=== PATIENT | male | born 1945 | race Caucasian/White ===

== ENCOUNTER 2021-01-24 08:31 | Day surgery (SDC) | payer OTHER, BC ==
[2021-01-21 15:05] VITALS: BMI 26.5
[2021-01-24] MEDS ORDERED: PROPOFOL 20 ML ONE ×2 (08:59)
[2021-01-24 10:23] VITALS: TEMP 97.5
[2021-01-24 10:36] VITALS: BP 111/61; PULSE 55
== END 2021-01-24 10:55 | disposition home or self-care (01) ==
LOC: FASU-ENDO 08:31
PROVIDERS: ATTEND Internal Medicine Gastroenterology
PROC: 0DJD8ZZ Inspection of Lower Intestinal Tract, Via Natural or Artificial Opening Endoscopic (ICD-10-PCS; principal; 2021-01-24 09:52)
DX: Z86.010 Personal history of colon polyps (principal)

== ENCOUNTER 2021-04-21 20:30 | Emergency (ER) | payer OTHER, BC ==
[2021-04-21 21:07] VITALS: BP 128/57; PULSE 63; TEMP 98.7; BMI 26.5
== END 2021-04-21 23:46 | disposition home or self-care (01) ==
LOC: FER 20:30
DX: I83.813 Varicose veins of bilateral lower extremities with pain (principal)
CPT/HCPCS: 93970-TC; 99283-25

== ENCOUNTER 2023-01-30 13:58 | Day surgery (SDC) | payer OTHER, BC ==
[2023-01-30 14:25] VITALS: BP 137/57; PULSE 58; RESP 16; TEMP 98.3
[2023-01-30] MEDS ORDERED: DENOSUMAB 60 MG/ML DISP.SYRIN SQ ONE (14:30)
== END 2023-01-30 14:25 | disposition home or self-care (01) ==
LOC: FINFUSION 13:58 → FM/S 13:59 → FINFUSION 14:25
PROVIDERS: ATTEND Internal Medicine Endocrinology, Diabetes & Metabolism
DX: M81.0 Age-related osteoporosis without current pathological fracture (principal)
CPT/HCPCS: 96372; J0897

== ENCOUNTER 2023-10-03 11:15 | Day surgery (SDC) | payer OTHER, BC ==
[2023-10-03] MEDS: DENOSUMAB 60 MG/ML DISP.SYRIN SQ ONE (11:41)
[2023-10-03 12:28] VITALS: BP 116/54; PULSE 55; RESP 16; TEMP 98.6
== END 2023-10-03 11:50 | disposition home or self-care (01) ==
LOC: FINJECTION 11:15 → FM/S 11:18 → FINJECTION 11:50
PROVIDERS: ATTEND Internal Medicine Endocrinology, Diabetes & Metabolism
PROC: 3E013GC Introduction of Other Therapeutic Substance into Subcutaneous Tissue, Percutaneous Approach (ICD-10-PCS; principal; 2023-10-03)
DX: M81.0 Age-related osteoporosis without current pathological fracture (principal)
CPT/HCPCS: 96372; J0897

== ENCOUNTER 2024-08-07 11:50 | Day surgery (SDC) | payer OTHER, BC ==
[2024-08-07] MEDS ORDERED: REFRIGERATED ANITBIOTICS ONE (11:56)
[2024-08-07] MEDS: DENOSUMAB 60 MG/ML DISP.SYRIN SQ ONE (12:22)
[2024-08-07 12:32] VITALS: BP 116/59; PULSE 60; RESP 16; TEMP 98.9
== END 2024-08-07 12:33 | disposition home or self-care (01) ==
LOC: FINJECTION 11:50 → FM/S 11:51 → FINJECTION 12:33
PROVIDERS: ATTEND Internal Medicine Endocrinology, Diabetes & Metabolism
PROC: 3E023GC Introduction of Other Therapeutic Substance into Muscle, Percutaneous Approach (ICD-10-PCS; principal; 2024-08-07)
DX: M81.0 Age-related osteoporosis without current pathological fracture (principal)
CPT/HCPCS: 96372; J0897